=== PATIENT | female | born 1960 | race Caucasian/White ===

== ENCOUNTER → 2021-01-07 | Outpatient (CLI) | payer MEDICARE ==
--- NOTE | 2021-01-07 16:37 | REP ---
INDICATION: ADHESIVE CAPSULITIS LT SHOULDER. COMPARISON: None. TECHNIQUE: Coronal oblique T1, T2 fat sat, sagittal oblique T2 fat sat, axial T2 fat sat, gradient echo. FINDINGS: Rotator cuff: There is mild supraspinatus tendinopathy/tendinitis. I do not see evidence of a rotator cuff tendon tear. Acromioclavicular joint: There are mild hypertrophic degenerative changes of the acromioclavicular joint. Acromion: Type 2 Biceps Tendon: In bicipital groove, no tenosynovitis. Hill Sach's deformity: None. Deltoid muscle: No abnormal signal. Biceps labral complex: Intact. Labrum: No tear. Cartilage: No defects. Bone marrow: No abnormal signal. Joint fluid: No effusion. IMPRESSION: Mild supraspinatus tendinopathy/tendinitis. No rotator cuff tear or evidence of labral tear. Mild hypertrophic degenerative changes acromioclavicular joint. <Electronically signed by Gonzalo Domingo > 01/07/21 9500
== END ==
LOC: M PLARAD 15:14
PROVIDERS: ATTEND Physician Assistant Medical
DX: M75.02 Adhesive capsulitis of left shoulder (principal)